=== PATIENT | male | born 1975 | race Caucasian/White ===

== ENCOUNTER 2021-08-26 20:59 | Inpatient (IN) | payer OTHER ==
[~2021-08-26] VITALS: Ht 170.2 cm; Wt 124.6 kg
[2021-08-26] MEDS ORDERED: CITA10TA99 PO (21:29)
[2021-08-26] MEDS ORDERED: LORA-999 PO (21:29)
[2021-08-26] MEDS ORDERED: AMLO2.5T96 PO (21:29)
[2021-08-26] MEDS ORDERED: LISI-892 PO (21:29)
[2021-08-26] MEDS ORDERED: ALLO-45 PO (21:29)
[2021-08-26] MEDS ORDERED: ATEN-73 PO (21:29)
[2021-08-26] MEDS ORDERED: LORazepam 2 MG/ML VIAL IVP ONE (23:45)
[2021-08-26] MEDS ORDERED: SODIUM CHLORIDE 0.9% 2,000 ML IV ONE (23:45)
[2021-08-27 00:07] LABS: BASOPHILS % (AUTO) 0.3 % (0.0-2.0); EOSINOPHILS % (AUTO) 0.5 % (1.0-6.0); HEMATOCRIT 40.8 % (41-53); HEMOGLOBIN 14.1 g/dL (13.5-17.5); LYMPHOCYTES # (AUTO) 2.8 K/uL (1.0-4.8); LYMPHOCYTES % (AUTO) 26.9 % (22.0-44.0); MEAN CORPUSCULAR HGB CONC 34.4 G/dL (31.0-37.0); MEAN CORPUSCULAR VOLUME 90 fL (80-100); MONOCYTES # (AUTO) 1.2 K/uL (0.1-1.0); MONOCYTES % (AUTO) 11.3 % (2.0-9.0); NEUTROPHILS # (AUTO) 6.3 K/uL (1.8-7.7); PLATELET COUNT (AUTO) 149 K/uL (150-450); RED BLOOD CELL COUNT(AUTO) 4.53 MIL/uL (4.50-5.90); RED CELL DISTRIBUTION WIDTH 14.1 % (11.5-14.5)
[2021-08-27 00:15] LABS: ANION GAP 12 mmol/L (8-16); CALCIUM, TOTAL 8.8 mg/dL (8.8-10.5); CARBON DIOXIDE 28 mmol/L (22-29); CHLORIDE 99 mmol/L (98-107); CREATININE 0.91 mg/dL (0.60-1.30); GLOMERULAR FILTR. RATE CALC > 60 mL/min (>60); GLUCOSE,RANDOM 127 mg/dL (70-110); POTASSIUM 3.5 mmol/L (3.5-5.1); SODIUM SERUM 139 mmol/L (136-145); UREA NITROGEN, BLOOD 25 mg/dL (7-18)
[2021-08-27 00:20] LABS: ALANINE AMINOTRANSFERASE 57 U/L (12-78); ALBUMIN 3.9 g/dL (3.4-5.0); ALKALINE PHOSPHATASE 114 U/L (46-116); ASPARTATE AMINOTRANSFERASE 57 U/L (15-37); BILIRUBIN,TOTAL 0.7 mg/dL (0.1-1.0); LIPASE 466 U/L (73-393); TOTAL PROTEIN, SERUM 8.1 g/dL (6.4-8.2)
[2021-08-27] MEDS ORDERED: HALOPERIDOL 5 MG TABLET PO ONE (02:00)
[2021-08-27] MEDS ORDERED: DiphenhydrAMINE HCL 25 MG CAPSULE PO ONE (02:00)
[2021-08-27] MEDS ORDERED: LORazepam 2 MG/ML VIAL IVP ONE (03:30)
[2021-08-27] MEDS ORDERED: MAGNESIUM SULFATE 2 GM, MVI, ADULT NO.1 WITH VIT K 10 ML, THIAMINE 100 MG, FOLIC ACID 1... IV ONE ×5 (03:30)
[2021-08-27] MEDS ORDERED: HALOPERIDOL LACTATE 5 MG/ML VIAL IVP ONE ×2 (03:30→04:15)
[2021-08-27 06:54] LABS: COVID AG,FIA SOURCE NASOPHARYNGEAL
[2021-08-27] MEDS ORDERED: LORazepam 2 MG TABLET PO PRN (07:00)
[2021-08-27] MEDS ORDERED: ONDANSETRON HCL 4 MG/2 ML VIAL IVP PRN (07:00)
[2021-08-27] MEDS ORDERED: ACETAMINOPHEN 325 MG TABLET PO PRN (07:00)
[2021-08-27] MEDS: 1: MAGNESIUM SULFATE 2 GM, MVI, ADULT NO.1 WITH VIT K 10 ML, THIAMINE 100 MG, FOLIC ACID IV SCH ×10 (07:00→18:42)
[2021-08-27] MEDS: HEPARIN SODIUM,PORCINE 5,000 UNITS/ML VIAL SQ SCH ×3 (08:17→23:33)
[2021-08-27 17:37] LABS: AMPHET/METH SCREEN,URINE NEGATIVE (NEGATIVE); BARBITURATE SCREEN, URINE NEGATIVE (NEGATIVE); BENZODIAZEPINES SCREEN,URINE NEGATIVE (NEGATIVE); CANNABINOID SCREEN,URINE NEGATIVE (NEGATIVE); COCAINE SCREEN,URINE NEGATIVE (NEGATIVE); METHADONE SCREEN, URINE NEGATIVE (NEGATIVE); OPIATE SCREEN,URINE NEGATIVE (NEGATIVE)
[2021-08-27 17:42] LABS: PHENCYCLIDINE SCREEN,URINE NEGATIVE (NEGATIVE)
[2021-08-27 21:34] VITALS: BP 162/86
[2021-08-28 02:25] VITALS: BP 126/76
[2021-08-28] MEDS ORDERED: INFLUENZA VIRUS VACCINE QVS 2021-22 (6MO+)/PF 60 MCG/0.5 ML SYRINGE IM. ONE (02:30)
[2021-08-28 03:47] VITALS: BP 165/99
[2021-08-28] MEDS ORDERED: SODIUM CHLORIDE 0.9% 1,000 ML ONE ×2 (03:49→23:38)
[2021-08-28] MEDS: 1: MAGNESIUM SULFATE 2 GM, MVI, ADULT NO.1 WITH VIT K 10 ML, THIAMINE 100 MG, FOLIC ACID IV SCH ×20 (03:55→23:39)
[2021-08-28] MEDS ORDERED: LORazepam 2 MG TABLET PO PRN (07:00)
[2021-08-28 08:22] VITALS: BP 171/108
[2021-08-28] MEDS: HEPARIN SODIUM,PORCINE 5,000 UNITS/ML VIAL SQ SCH ×3 (08:23→23:34)
[2021-08-28] MEDS: ATENOLOL 25 MG TABLET PO SCH ×2 (08:23→22:10)
[2021-08-28] MEDS: LORazepam 2 MG TABLET PO SCH ×4 (08:24→22:10)
[2021-08-28 09:43] VITALS: BP 135/65
[2021-08-28] MEDS: CITALOPRAM HYDROBROMIDE 20 MG TABLET PO SCH (10:45)
[2021-08-28] MEDS: QUEtiapine FUMARATE 25 MG TABLET PO SCH ×2 (10:46→23:34)
[2021-08-28 15:42] VITALS: BP 155/95
[2021-08-28 20:20] VITALS: BP 139/99
[2021-08-29 00:24] VITALS: BP 150/88
[2021-08-29 04:30] VITALS: BP 156/90
[2021-08-29 07:43] VITALS: BP 148/81
[2021-08-29] MEDS: HEPARIN SODIUM,PORCINE 5,000 UNITS/ML VIAL SQ SCH (08:22)
[2021-08-29] MEDS: CITALOPRAM HYDROBROMIDE 20 MG TABLET PO SCH (08:23)
[2021-08-29] MEDS: LORazepam 2 MG TABLET PO SCH ×2 (08:23→12:29)
[2021-08-29] MEDS: ATENOLOL 25 MG TABLET PO SCH (08:23)
[2021-08-29] MEDS: QUEtiapine FUMARATE 25 MG TABLET PO SCH (08:23)
[2021-08-29] MEDS ORDERED: SODIUM CHLORIDE 0.9% 1,000 ML ONE (09:24)
[2021-08-29] MEDS: 1: MAGNESIUM SULFATE 2 GM, MVI, ADULT NO.1 WITH VIT K 10 ML, THIAMINE 100 MG, FOLIC ACID IV SCH ×5 (09:24)
[2021-08-29] MEDS ORDERED: MULT-1203 PO (11:47)
[2021-08-29] MEDS ORDERED: ATEN-188 PO (11:48)
[2021-08-29] MEDS ORDERED: AMLO-257 PO (11:48)
[2021-08-29] MEDS ORDERED: FOLI-130 PO (11:49)
[2021-08-29] MEDS ORDERED: THIA100T80 PO (11:49)
[2021-08-29] MEDS ORDERED: LORA-1000 PO (11:50)
[2021-08-30] MEDS ORDERED: LORazepam 1 MG TABLET PO PRN (07:00)
[2021-08-30] MEDS ORDERED: LORazepam 1 MG TABLET PO SCH (09:00)
[2021-08-31] MEDS ORDERED: LORazepam 1 MG TABLET PO PRN (07:00)
== END 2021-08-29 15:17 | disposition home or self-care (01) | DRG 282 ==
LOC: EMS 21:03 → EDBD 21:03 → 6S 08-27 20:00
PROVIDERS: ADMIT Internal Medicine; ATTEND Internal Medicine
DX: K85.90 Acute pancreatitis without necrosis or infection, unspecified (principal); F10.231 Alcohol dependence with withdrawal delirium; F32.3 Major depressive disorder, single episode, severe with psychotic features; D69.6 Thrombocytopenia, unspecified; K74.60 Unspecified cirrhosis of liver; E66.01 Morbid (severe) obesity due to excess calories; Z68.42 Body mass index [BMI] 45.0-49.9, adult; I10 Essential (primary) hypertension; E78.5 Hyperlipidemia, unspecified; Z20.822 Contact with and (suspected) exposure to COVID-19; F41.9 Anxiety disorder, unspecified; R74.8 Abnormal levels of other serum enzymes; Z79.899 Other long term (current) drug therapy
CPT/HCPCS: 80053; 83690; 84484; 85025; 90686; 93005; 99291; G0480; J1630; J1644; J2060; J3411; J3475; J3490; J7030